=== PATIENT | male | born 2000 | race Two or more races ===

== ENCOUNTER 2022-03-15 13:45 | Emergency (ER) | payer SELFPAY ==
[~2022-03-15] VITALS: Ht 177.8 cm; Wt 65.0 kg
[2022-03-15 16:02] VITALS: BP 144/110
[2022-03-15] MEDS ORDERED: IBUPROFEN 800 MG TAB PO ONE (17:00)
[2022-03-15] MEDS ORDERED: cefTRIAXone SOD 1,000 MG VL IM ONE (17:00)
[2022-03-15] MEDS ORDERED: CEPH500C PO (17:06)
[2022-03-15] MEDS ORDERED: IBUP800T27 PO (17:06)
== END 2022-03-15 17:26 | disposition home or self-care (01) ==
LOC: ER 13:45
DX: S92.492A Other fracture of left great toe, initial encounter for closed fracture (principal); S99.922A Unspecified injury of left foot, initial encounter; Z79.1 Long term (current) use of non-steroidal anti-inflammatories (NSAID); Z79.899 Other long term (current) drug therapy; W20.8XXA Other cause of strike by thrown, projected or falling object, initial encounter; Y93.89 Activity, other specified; Y92.89 Other specified places as the place of occurrence of the external cause; Y99.8 Other external cause status
CPT/HCPCS: 11730; 73630; 96372; 99284; J0696

== ENCOUNTER 2022-03-19 21:15 | Emergency (ER) | payer SELFPAY ==
[~2022-03-19] VITALS: Ht 177.8 cm; Wt 74.5 kg
[~2022-03-19 21:15] MED LIST: CEPH500C PO; IBUP800T27 PO
[2022-03-20] MEDS ORDERED: BACITRACIN TOP OINT 1 UD PKG TOP ONE (01:45)
[2022-03-20 02:27] VITALS: BP 138/83
== END 2022-03-20 01:10 | disposition home or self-care (01) ==
LOC: ER 21:16
DX: S92.422D Displaced fracture of distal phalanx of left great toe, subsequent encounter for fracture with routine healing (principal); Z79.1 Long term (current) use of non-steroidal anti-inflammatories (NSAID); Z79.899 Other long term (current) drug therapy; W20.8XXD Other cause of strike by thrown, projected or falling object, subsequent encounter